=== PATIENT | male | born 1970 | race African-American/Black ===

== ENCOUNTER 2017-12-25 09:50 | Outpatient (CLI) | payer OTHER ==
[~2017-12-25] VITALS: Ht 172.7 cm; Wt 101.0 kg
[2017-12-25 10:16] VITALS: BP 128/82; PULSE 62
[2017-12-25 11:06] VITALS: BP 127/73; PULSE 51
[2017-12-25 11:10] VITALS: BP 127/73; PULSE 51
[2017-12-25 11:37] LABS: GLUCOSE,CSF 51 mg/dL (40-70); TOTAL PROTEIN,CSF 43 mg/dL (15-45)
[2017-12-25 11:40] LABS: CSF APPEARANCE CLEAR; CSF COLOR COLORLESS
[2017-12-25 11:59] LABS: CSF RBC 500 /mm3 (0-0)
[2017-12-25 12:00] LABS: CSF MONONUCLEAR 100 % (70-100); CSF POLYMORPHONUCLEAR 0 % (0-6)
[2017-12-25 12:25] VITALS: BP 109/72; PULSE 74
[2017-12-27 13:02] LABS: ALBUMIN CSF 21.9 mg/dL (<=27.0); CSF IGG/ALBUMIN 0.18 (<=0.21); CSF,IGG 3.9 mg/dL (<=8.1)
[2017-12-27 13:18] LABS: CSF-IGG INDEX 0.5 (<=0.85); IGG/ALBUMIN SERUM 0.36 (<=0.40)
== END 2017-12-25 12:41 | disposition home or self-care (01) ==
LOC: COL.RAD 09:50
PROVIDERS: Psychiatry & Neurology Neurology
DX: G37.9 Demyelinating disease of central nervous system, unspecified (principal); R93.0 Abnormal findings on diagnostic imaging of skull and head, not elsewhere classified